=== PATIENT | male | born 1975 | race Caucasian/White ===

== ENCOUNTER 2018-12-08 23:56 | Emergency (ER) | payer BC ==
[2018-12-09] MEDS ORDERED: RINGERS SOLUTION,LACTATED 1,000 ML IV ONE ×2 (00:15→02:18)
[2018-12-09] MEDS ORDERED: EPINEPHRINE INJ/PF 1 MG/1 ML AMPULE IM ONE ×2 (00:16→03:34)
[2018-12-09] MEDS ORDERED: METHYLPREDNISOLONE INJ 125 MG/2 ML SDV IV ONE (00:17)
[2018-12-09] MEDS ORDERED: FAMOTIDINE INJ/PF 20 MG/2 ML SDV IV ONE (00:17)
[2018-12-09] MEDS ORDERED: DIPHENHYDRAMINE HCL 50 MG/ML VIAL IV ONE (00:17)
[2018-12-09] MEDS ORDERED: ONDANSETRON HCL INJ/PF 4 MG/2 ML SDV IV ONE (00:18)
[2018-12-09] MEDS ORDERED: NORMAL SALINE 1000 ML 1,000 ML IV ONE (01:06)
[2018-12-09] MEDS ORDERED: IBUPROFEN 800 MG TABLET PO ONE (02:14)
[2018-12-09 02:19] LABS: ALANINE AMINOTRANSFERASE 238 U/L (21-72); ALBUMIN 4.3 g/dL (3.5-5.0); ALKALINE PHOSPHATASE 94 U/L (38-126); ANION GAP 14 (5-19); ASPARTATE AMINO TRANSFERASE 61 U/L (17-59); BILIRUBIN,DIRECT 0.3 mg/dL (0.0-0.4); BILIRUBIN,TOTAL 0.5 mg/dL (0.2-1.3); BLOOD UREA NITROGEN 20 mg/dL (7-20); CALCIUM 9.9 mg/dL (8.4-10.2); CARBON DIOXIDE 25 mmol/L (22-30); CHLORIDE 97 mmol/L (98-107); GLUCOSE 373 mg/dL (75-110); POTASSIUM 4.1 mmol/L (3.6-5.0); SODIUM 136.1 mmol/L (137-145); TOTAL PROTEIN 7.1 g/dL (6.3-8.2)
[2018-12-09 02:21] LABS: APPEARANCE,URINE CLEAR; BILIRUBIN,URINE NEGATIVE (NEGATIVE); COLOR,URINE STRAW; GLUCOSE, URINE >=500 mg/dL (NEGATIVE); KETONES,URINE TRACE mg/dL (NEGATIVE); LEUKOCYTE ESTERASE,URINE NEGATIVE (NEGATIVE); NITRITE,URINE NEGATIVE (NEGATIVE); PROTEIN,URINE NEGATIVE (NEGATIVE); URINE SPECIFIC GRAVITY 1.027; UROBILINOGEN,URINE NEGATIVE mg/dL (<2.0)
[2018-12-09] MEDS ORDERED: VANCOMYCIN HCL INJ 1000 MG VIAL IV ONE ×2 (02:37→02:51)
[2018-12-09] MEDS ORDERED: PIPERACILLIN/TAZOBACTAM 3.375 GM VIAL IV ONE (02:37)
[2018-12-09 02:42] LABS: VENOUS BLOOD BASE EXCESS -0.2 mmol/L; VENOUS BLOOD HCO3 25.3 mmol/L (20-32); VENOUS BLOOD PCO2 44.9 mmHg (35-63); VENOUS BLOOD PH 7.37 (7.30-7.42)
[2018-12-09 02:45] LABS: URINE AMPHETAMINES SCREEN NEGATIVE; URINE BARBITURATES SCREEN NEGATIVE; URINE BENZODIAZEPINES SCREEN NEGATIVE; URINE COCAINE SCREEN NEGATIVE; URINE MARIJUANA (THC) SCREEN NEGATIVE; URINE METHADONE SCREEN NEGATIVE; URINE PHENCYCLIDINE SCREEN NEGATIVE
[2018-12-09] MEDS ORDERED: ACYCLOVIR SODIUM INJ/PF 500 MG/10 ML SDV IV ONE ×3 (02:49→06:00)
[2018-12-09] MEDS ORDERED: CEFTRIAXONE 2 GM/D5W RTU 2 GM/50 ML RTUPB IV ONE (02:50)
[2018-12-09 02:57] LABS: HEMATOCRIT 35.3 % (37.9-51.0); HEMOGLOBIN 12.1 g/dL (13.5-17.0); MEAN CORPUSCULAR HEMOGLOBIN 30.9 pg (27.0-33.4); MEAN CORPUSCULAR HGB CONC 34.3 g/dL (32.0-36.0); MEAN CORPUSCULAR VOLUME 90 fl (80-97); PLATELET COUNT 231 10^3/uL (150-450); RED BLOOD COUNT 3.93 10^6/uL (4.35-5.55); RED CELL DISTRIBUTION WIDTH 11.8 % (11.5-14.0); WHITE BLOOD COUNT 4.2 10^3/uL (4.0-10.5)
[2018-12-09 03:25] LABS: A TYPE INFLUENZA AG NEGATIVE (NEGATIVE); B INFLUENZA AG NEGATIVE (NEGATIVE)
[2018-12-09 03:30] LABS: ABSOLUTE MONOCYTES # (MANUAL) 0.2 10^3/uL (0.1-1.4); ABSOLUTE NEUTROPHILS# (MANUAL) 3.9 10^3/uL (1.7-8.2); BAND NEUTROPHILS % (MANUAL) 9 % (3-5); BASOPHILS % (MANUAL) 0 % (0-2); EOSINOPHILS % (MANUAL) 0 % (0-6); LYMPHOCYTES % (MANUAL) 1 % (13-45); MONOCYTES % (MANUAL) 5 % (3-13); SEGMENTED NEUTROPHILS % (MAN) 85 % (42-78); TOTAL CELLS COUNTED 100
--- NOTE | 2018-12-09 03:31 | RADIOLOGY REPORT (SQ) ---
EXAM DESCRIPTION: CT HEAD WITHOUT IV CONTRAST COMPLETED DATE/TME: 12/09/2018 02:49 CLINICAL HISTORY: 43 years, Male, change loc COMPARISON: None. TECHNIQUE: 196 Images stored on PACS. All CT scanners at this facility use dose modulation, iterative reconstruction, and/or weight based dosing when appropriate to reduce radiation dose to as low as reasonably achievable (ALARA). [facility]: Dose Right [facility]: CareDose [facility]: Dose Right [facility]: Teradose 4D [facility]: [employer] LIMITATIONS: None. FINDINGS: The globes are intact. The paranasal sinuses and mastoid air cells are unremarkable. No displaced or depressed skull fracture. No intra or extra-axial hemorrhage. CT is limited for evaluation of acute infarct. No CT evidence for large or territorial acute infarct. No mass or midline shift IMPRESSION: Negative exam TECHNICAL DOCUMENTATION: Quality ID # [id number]: Final reports with documentation of one or more dose reduction techniques (e.g., Automated exposure control, adjustment of the mA and/or kV according to patient size, use of iterative reconstruction technique) copyright 2011 [employer]- All Rights Reserved
[2018-12-09 03:32] LABS: PLATELET COMMENT ADEQUATE; POLYCHROMASIA 1+; ROULEAUX SLIGHT
--- NOTE | 2018-12-09 03:50 | RADIOLOGY REPORT (SQ) ---
EXAM DESCRIPTION: XR CHEST 2 VIEWS COMPLETED DATE/TME: 12/09/2018 02:13 CLINICAL HISTORY: 43 years, Male, fever COMPARISON: None. NUMBER OF VIEWS: 2 TECHNIQUE: Frontal and lateral views of the chest LIMITATIONS: None. FINDINGS: Heart size is normal. Lungs are clear. No pneumothorax IMPRESSION: Negative chest copyright 2010 [employer]- All Rights Reserved
[2018-12-09] MEDS ORDERED: LIDOCAINE 1% INJ-PF (10 MG/ML) 30 ML SDV ONE (03:53)
[2018-12-09] MEDS ORDERED: ACETAMINOPHEN 325 MG TABLET PO ONE (04:03)
[2018-12-09 05:09] LABS: GLUCOSE,CSF 189 mg/dL (40-70); PROTEIN,CSF 55 mg/dL (12-60)
[2018-12-09 05:24] LABS: CREATINE KINASE 52 U/L (55-170)
[2018-12-09 05:30] LABS: ACETAMINOPHEN < 10 ug/mL (10-30); SALICYLATE < 1.0 mg/dL (2.0-20.0)
[2018-12-09 05:33] LABS: APPEARANCE ALL TUBES CLEAR; COLOR ALL TUBES COLORLESS; CSF TOTAL VOLUME 3.7 CC; CSF TUBE NUMBER 1; VOLUME TUBE 2 0.8 CC; VOLUME TUBE 3 0.9 CC
[2018-12-09 05:34] LABS: RED BLOOD CELL,CSF 7 /uL (0-10)
[2018-12-09 05:35] LABS: WHITE BLOOD CELL,CSF 3 /uL (0-5)
[2018-12-09 05:37] LABS: APPEARANCE ALL TUBES CLEAR; COLOR ALL TUBES COLORLESS; CSF TOTAL VOLUME 3.7 CC; CSF TUBE NUMBER 4; VOLUME TUBE 2 0.8 CC; VOLUME TUBE 3 0.9 CC
[2018-12-09 05:40] LABS: RED BLOOD CELL,CSF 2 /uL (0-10); WHITE BLOOD CELL,CSF 6 /uL (0-5)
[2018-12-09 06:18] LABS: LYMPHOCYTES % (MANUAL) 0 % (13-45); SEGMENTED NEUTROPHILS % (MAN) 0 % (42-78)
[2018-12-09 06:19] LABS: BASOPHILS % (MANUAL) 0 % (0-2); EOSINOPHILS % (MANUAL) 0 % (0-6); MONOCYTES % (MANUAL) 0 % (3-13)
--- NOTE | 2018-12-09 07:08 | ER Document Report ---
ED General - General TRAVEL OUTSIDE OF THE [place] IN LAST 30 DAYS: No <FAZAL GO - Last Filed: 12/09/18 07:17> <ANMOL WALTERS Leisa - Last Filed: 12/09/18 12:45> - General Chief Complaint: Allergic Reaction Stated Complaint: POSSIBLE ALLERGIC REACTION Time Seen by Provider: 12/09/18 00:17 Primary Care Provider: ABIEL PAIGE MD [Primary Care Provider] - Follow up as needed Notes: Patient is an otherwise healthy 43-year-old male presents to the emergency department for potential allergic reaction. Patient states he was placed on Bactrim about a week ago for an abscess in his right groin. Patient states after a couple days of taking Bactrim he stopped because he got a generalized cough, congestion, body aches. States he re-presented to his primary care provider who stated he had influenza and provided him with Tamiflu. Patient states last night he restarted his Bactrim because he noted some swelling in his right groin. Patient states he took his Bactrim around 2245. States about 10 minutes after that he noticed he had a generalized rash over bilateral arms and bilateral legs. States he took 25 mg of his Benadryl but then started feeling nauseous and as though his tongue was swelling so he presents to the emergency r oom. Patient is currently in no respiratory distress, talking in full sentences, temperature 100.0 orally, heart rate 94, blood pressure 114/69, respiratory rate 24, oxygen saturation 99% on room air. (FAZAL GO) - Related Data Allergies/Adverse Reactions: sulfamethoxazole [From Bactrim] Allergy (Verified 12/09/18 07:27) trimethoprim [From Bactrim] Allergy (Verified 12/09/18 07:27) Past Medical History - General Information source: Patient, Relative - Social History Smoking Status: Never Smoker Chew tobacco use (# tins/day): No Frequency of alcohol use: None Drug Abuse: None Family History: Reviewed & Not Pertinent Patient has suicidal ideation: No Patient has homicidal ideation: No Renal/ Medical History: Denies: Hx Peritoneal Dialysis <FAZAL GO - Last Filed: 12/09/18 07:17> Review of Systems - Review of Systems Constitutional: No symptoms reported EENT: See HPI Cardiovascular: No symptoms reported Respiratory: denies: Cough, Short of breath, Wheezing Gastrointestinal: See HPI Genitourinary: No symptoms reported Male Genitourinary: No symptoms reported Musculoskeletal: No symptoms reported Skin: See HPI Hematologic/Lymphatic: No symptoms reported Neurological/Psychological: No symptoms reported <FAZAL GO - Last Filed: 12/09/18 07:17> Physical Exam <FAZAL GO - Last Filed: 12/09/18 07:17> - Vital signs Vitals: Temp Pulse Resp BP Pulse Ox 100.0 F 94 24 H 114/69 99 12/08/18 23:57 12/08/18 23:57 12/08/18 23:57 12/08/18 23:57 12/08/18 23:57 - Notes Notes: GENERAL: Alert, interacts well. No acute distress. patient speaking in full sentences No muffled voice noted HEAD: Normocephalic, atraumatic. EYES: Pupils equal, round, and reactive to light. Extraocular movements intact. ENT: Oral mucosa moist, tongue midline, does not appear swollen. NECK: Full range of motion. Supple. Trachea midline. LUNGS: Clear to auscultation bilaterally, no wheezes, rales, or rhonchi. No respiratory distress. HEART: Regular rate and rhythm. No murmur ABDOMEN: Soft, non-tender. Non-distended. Bowel sounds present in all 4 quadrants. EXTREMITIES: Moves all 4 extremities spontaneously. No edema, normal radial and dorsalis pedis pulses bilaterally. No cyanosis. BACK: no cervical, thoracic, lumbar midline tenderness. No saddle anesthesia, normal distal neurovascular exam. NEUROLOGICAL: Alert and oriented x3. Normal speech. cranial nerves II through XII grossly intact . PSYCH: Normal affect, normal mood. SKIN: Warm, dry, normal turgor. Generalized erythematous lacy rash noted bilateral upper extremities, bilateral lower extremities, nonraised, blanching. (FAZAL GO) Course - Laboratory Result Diagrams: 12/09/18 02:40 12/09/18 00:17 <JORDYFREDERIC DUONGCHRISTIANFERNANDO - Last Filed: 12/09/18 07:17> - Laboratory Result Diagrams: 12/09/18 02:40 12/09/18 00:17 <ANMOL WALTERS - Last Filed: 12/09/18 12:45> - Re-evaluation Re-evalutation: Initially patient presents to the emergency department with a chief complaint of a potential anaphylactic reaction. Patient is intermittently dry heaving upon my examination. Patient's generalized rash is blanching but does not appear to be urticaria can nature. Although patient is speaking in full sentences he is stating that he feels as though his tongue is swollen and is intermittently havi ng trouble breathing. Discussed this case with my attending Dr. Judy Edward who suggest treating the patient for anaphylactic reaction. Patient was initially treated with fluid bolus, IM epinephrine, steroids, H2/H1 blockers. Patient appears as though his skin is now generalized flushed looking. Patient states he overall feels better but is not tachycardic and intermittently hypotensive. Patient was given another fluid bolus in the emergency department. Patient's mother brings to nursing's attention that the patient is now "not making any sense." Upon examination of the patient he is ta lking about white water rafting and is unable to tell staff the date. Vitals were reexamined and the patient was noted to have a fever of 103.2. He now meets SIRS criteria. Patient's labs show no leukocytosis, VBG within normal limits, glucose was noted to be 373. Lactate 3.4, no signs of urinary tract infection, head CT was negative for intracranial bleeding. Chest x-ray shows no signs of pneumonia, pneumothorax. Patient's drug tox was negative, influenza testing also negative. Patient was then treated with vancomycin, ceftriaxone, acyclovir for prophylactic meningitis. Patient is now able to tell staff the date and his name. Mother states she feels as though the patient is "back to normal." Patient is able to consent to a lumbar puncture. Lumbar puncture shows glucose 189, protein 55, WBCs 6 #4. Findings consistent with a viral meningitis. Despite patient continued tachycardia he does have intermittent episodes of hypotension. He does appear to be generally flushed, and discussing this case again with my attending Dr. Judy Edward she is suggesting a another IM dose of epinephrine as this could continued be a rebound anaphylactic reaction. Discussed this case with hospitalist Dr. Monae who states he believes this patient should have a neurology consult. States we do not have neurology at this facility so he is requesting a transfer. Discussed this case with hospitalist Dr. Jarek Asher at [facility] who will accept the patient. Patient's current heart rate is 112, SPO2 97% on room air respiratory rate 17, blood pressure 99/55. Patient is able to answer simple questions and mother sitting at bedside states he continues to "be making sense." Pt. Care and report transferred to [facility] [employer] awaiting transfer. (FAZAL VENEGAS) Position given by Yi Go at 0715, clinical evaluation at bedside. Patient in no distress, patient resting on vitals stable. Reevaluation at 1915, patient afebrile vitals stable and chest. 10:00, reevaluation, patient is not complaining of any pain, resting, patient will be transferred to [facility], patient able to transfer via ambulance without issues. 12/09/18 12:44 (ANMOL WALTERS) - Vital Signs Vital signs: Temp Pulse Resp BP Pulse Ox 100.0 F 94 21 H 98/66 L 98 12/08/18 23:57 12/08/18 23:57 12/09/18 09:46 12/09/18 09:46 12/09/18 09:46 - Laboratory Laboratory results interpreted by wy: 12/09/18 12/09/18 12/09/18 00:17 00:17 00:17 RBC Hgb Hct Seg Neuts % (Manual) 0 L Band Neutrophils % Lymphocytes % (Manual) 0 L Monocytes % (Manual) 0 L Abs Neuts (Manual) 0.0 L Abs Lymphs (Manual) 0.0 L Abs Monocytes (Manual) 0.0 L Sodium 136.1 L Chloride 97 L Glucose 373 H POC Glucose Lactic Acid AST 61 H ALT 238 H Creatine Kinase 52 L Urine Glucose (UA) Urine Ketones CSF WBC CSF Glucose Salicylates < 1.0 L Acetaminophen < 10 L 12/09/18 12/09/18 12/09/18 02:05 02:26 02:40 RBC 3.93 L Hgb 12.1 L Hct 35.3 L Seg Neuts % (Manual) 85 H Band Neutrophils % 9 H Lymphocytes % (Manual) 1 L Monocytes % (Manual) Abs Neuts (Manual) Abs Lymphs (Manual) 0.0 L Abs Monocytes (Manual) Sodium Chloride Glucose POC Glucose Lactic Acid 3.4 H AST ALT Creatine Kinase Urine Glucose (UA) >=500 H Urine Ketones TRACE H CSF WBC CSF Glucose Salicylates Acetaminophen 12/09/18 12/09/18 12/09/18 04:05 04:05 04:17 RBC Hgb Hct Seg Neuts % (Manual) Band Neutrophils % Lymphocytes % (Manual) Monocytes % (Manual) Abs Neuts (Manual) Abs Lymphs (Manual) Abs Monocytes (Manual) Sodium Chloride Glucose POC Glucose 398 H Lactic Acid AST ALT Creatine Kinase Urine Glucose (UA) Urine Ketones CSF WBC 6 H CSF Glucose 189 H Salicylates Acetaminophen 12/09/18 06:24 RBC Hgb Hct Seg Neuts % (Manual) Band Neutrophils % Lymphocytes % (Manual) Monocytes % (Manual) Abs Neuts (Manual) Abs Lymphs (Manual) Abs Monocytes (Manual) Sodium Chloride Glucose POC Glucose Lactic Acid 3.1 H AST ALT Creatine Kinase Urine Glucose (UA) Urine Ketones CSF WBC CSF Glucose Salicylates Acetaminophen Critical Care Note - Critical Care Note Total time excluding time spent on procedures (mins): 60 - Please refer to course note, multiple reassessments of the patient, change in disposition and diagnosis. <FAZAL GO - Last Filed: 12/09/18 07:17> Discharge - Discharge Admitting Provider: Hospitalist - Dr. Jarek Asher <FAZAL GO - Last Filed: 12/09/18 07:17> <ANMOL WALTERS - Last Filed: 12/09/18 12:45> - Discharge Clinical Impression: Meningitis Anaphylactic reaction Qualifiers: Encounter type: initial encounter Qualified Code(s): T78.2XXA - Anaphylactic shock, unspecified, initial encounter Condition: Fair Disposition: [facility] Referrals: ABIEL PAIGE MD [Primary Care Provider] - Follow up as needed
[2018-12-09 10:00] VITALS: BP 98/66
--- NOTE | 2018-12-09 12:39 | EKG REPORT ---
SEVERITY:- BORDERLINE ECG - SINUS TACHYCARDIA PROBABLE LEFT ATRIAL ABNORMALITY : Confirmed by: Trena Pinto MD 09-Dec-2018 12:38:54
== END 2018-12-09 10:07 | disposition short-term general hospital (02) ==
LOC: ER 23:56
PROC: 00JU3ZZ Inspection of Spinal Canal, Percutaneous Approach (ICD-10-PCS; principal; 2018-12-08)
DX: G03.9 Meningitis, unspecified (principal); T78.2XXA Anaphylactic shock, unspecified, initial encounter; L02.214 Cutaneous abscess of groin; R05 Cough; R09.81 Nasal congestion; M79.10 Myalgia, unspecified site; Z79.899 Other long term (current) drug therapy; R21 Rash and other nonspecific skin eruption; A87.9 Viral meningitis, unspecified
CPT/HCPCS: 62270; 99291; 96372; 96361; 96375; 96365; 96366; 96367; 36415; 87040; 87070; 87205; 82962; 80307 ×4; 82550; 85025; 89050; 82945; 84157; 80053; 81001; 84484; 82803; 83605; 87804; 71046; 70450; 93005; 93010; J1200; J0171; J0133; J3490; J2930; J2405; J7030; J7120; J3370; S0028; J0696